=== PATIENT | male | born 1975 | race Hispanic/Latino ===

== ENCOUNTER → 2019-10-24 | Outpatient (CLI) | payer OTHER ==
--- NOTE | 2019-10-24 08:56 | Diagnostic Imaging Report ---
Abdominal ultrasound. History: Gallstones. Comparison: None available. Discussion: Transverse and longitudinal images of the abdomen were obtained demonstrating a liver of normal size and echogenicity measuring 14.8 cm in length. The portal vein is patent with hepatopetal flow and is within normal limits measuring 10 mm in diameter. The biliary tree is within normal limits with the common bile duct measuring 3 mm in diameter. The gallbladder contains a 2.5 cm shadowing stone without evidence of wall thickening or pericholecystic fluid. The sonographic Kahn's sign was negative. The kidneys are normal in size and echogenicity bilaterally without evidence of hydronephrosis, stones, or mass. The right kidney measures 12 cm and the left kidney measures 12 cm in length. The spleen is normal in size and appearance measuring 11.2 cm in length. The pancreatic head and body are visualized and are normal in appearance. The abdominal aorta and IVC are within normal limits. There is no evidence of free fluid. IMPRESSION: Cholelithiasis without sonographic evidence of cholecystitis. Otherwise unremarkable abdominal ultrasound. Signed by: Taiwo Cazares on 10/24/2019 8:53 AM
== END ==
LOC: US 07:10
PROVIDERS: ATTEND Family Medicine
DX: K80.80 Other cholelithiasis without obstruction (principal)
CPT/HCPCS: 76700